=== PATIENT | female | born 1955 | race African-American/Black ===

== ENCOUNTER → 2022-01-03 | Outpatient (CLI) | payer OTHER ==
--- NOTE | 2022-01-05 16:56 | CARD ---
MR#: [id number] Date of Study: 01/03/2022 Ordering Physician: ADA VERNON, Referring Physician: Marissa SHAIKH: [place] [facility] APPROVED REPORT EXAM: Two-dimensional and M-mode echocardiogram with Doppler and color Doppler. Other Information Quality : AverageHR: 74bpm Rhythm : NSR INDICATION Cardiomyopathy RISK FACTORS Smoking COPD 2D DIMENSIONS Left Atrium(2D)2.9 (1.6-4.0cm)IVSd1.5 (0.7-1.1cm) Aortic Root(2D)4.1 (2.0-3.7cm)LVDd3.5 (3.9-5.9cm) LVOT Diameter1.8 (1.8-2.4cm)PWd1.5 (0.7-1.1cm) LA Awcrws96 (18-58mL)LVDs1.9 (2.5-4.0cm) FS (%) 44.3 %SV38.7 ml Aortic Valve AoV Peak Rich.121.0cm/sAoV VTI20.4cm AO Peak GR.5.9mmHgLVOT Peak Rich.98.8cm/s LVOT VTI 15.17cmAO Mean GR.3mmHg ROXANE (VMAX)1.75uy4WWY (VTI)1.94cm2 Mitral Valve MV E Rillkrjb94.0cm/sMV DECEL [id number] MV A Wpuoqooe57.5cm/sMV DNI15kb E/A Ratio0.7MVA (PHT)2.45cm2 TDI E/Lateral E'9.5E/Medial E'8.3 Pulmonary Valve PV Peak Pfftkzua07.0cm/sPV Peak Grad.2mmHg Tricuspid Valve TR P. Zjstrhyx298ei/sTR Peak Gr.19mmHg Pulmonary Vein S1 Scynykpq39.0cm/sD2 Qwqzvhvw02.7cm/s LEFT VENTRICLE The left ventricle is normal size. There is moderate concentric left ventricular hypertrophy. The lef t ventricular systolic function is normal and the ejection fraction is within normal range. LV ejecti on fraction is 60 to 65%. There is normal LV segmental wall motion. No left ventricle thrombus noted on this study. There is no ventricular septal defect visualized. There is no left ventricular aneurys m. There is no mass noted in the left ventricle. RIGHT VENTRICLE The right ventricle is normal size. There is normal right ventricular wall thickness. The right ventr icular systolic function is normal. ATRIA The left atrium size is normal. The right atrium size is normal. AORTIC VALVE The aortic valve is normal in structure and function. Doppler and Color Flow revealed no significant aortic regurgitation. There is no significant aortic valvular stenosis. There is no aortic valvular v egetation. MITRAL VALVE The mitral valve is thickened but opens well. There is no evidence of mitral valve prolapse. There is no mitral valve stenosis. Doppler and Color Flow revealed trace mitral valve regurgitation. TRICUSPID VALVE The tricuspid valve is normal in structure and function. Doppler and Color Flow revealed trace to mil d tricuspid regurgitation. The PA pressure was estimated at 28 mmHg. There is no tricuspid valve prol apse or vegetation. There is no tricuspid valve stenosis. PULMONIC VALVE The pulmonary valve is normal in structure and function. Doppler and Color Flow revealed no pulmonic valvular regurgitation. There is no pulmonic valvular stenosis. 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 The ascending aorta is normal in size. The pulmonary artery is normal. The IVC is normal in size and collapses >50% with inspiration. PERICARDIAL EFFUSION There is no pleural effusion. There is no evidence of significant pericardial effusion. Critical Notification Critical Value: No <Conclusion> The left ventricle is normal size. The left ventricular systolic function is normal and the ejection fraction is within normal range. LV ejection fraction is 60 to 65%. There is moderate concentric left ventricular hypertrophy. Doppler and Color Flow revealed no significant aortic regurgitation. There is no significant aortic valvular stenosis. Doppler and Color Flow revealed trace mitral valve regurgitation. Doppler and Color Flow revealed trace to mild tricuspid regurgitation. The PA pressure was estimated at 28 mmHg. 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 Signed by : Keshav Babcock MD Electronically Approved : 01/05/2022 16:56:09
== END ==
LOC: ECHO 13:01
PROVIDERS: ATTEND Nurse Practitioner Primary Care
DX: I36.1 Nonrheumatic tricuspid (valve) insufficiency (principal); J44.9 Chronic obstructive pulmonary disease, unspecified; I51.7 Cardiomegaly; I42.9 Cardiomyopathy, unspecified; I77.819 Aortic ectasia, unspecified site
CPT/HCPCS: 93306; C8929